=== PATIENT | female | born 1990 | race Caucasian/White ===

== ENCOUNTER 2016-11-19 15:28 | Outpatient (CLI) | payer MEDICAID ==
[~2016-11-19] VITALS: Ht 167.6 cm; Wt 67.0 kg
[2016-11-19 15:42] VITALS: Ht 167.6 cm; Wt 67.0 kg
[2016-11-19 15:43] VITALS: BP 110/59; PULSE 85; RESP 18
--- NOTE | 2016-11-19 16:34 | RADRPT ---
PROCEDURE: US OB biophysical profile. CLINICAL INDICATION: decreased movements, labor TECHNIQUE: Multiple sonographic images of the pelvis were obtained. The images were reviewed on a PACS workstation. COMPARISON: No prior studies are available for comparison. FINDINGS: There is a single viable intrauterine gestation. Cardiac activity is present with 146 beats per min [place]. There is a vertex presentation. The placenta is anterior. There is no evidence of placental abruption. There is a normal amount of amniotic fluid with an SHERRIE = 11.8 cm. Biophysical profile: movement 2/2 tone 2/2. breathing 2/2 SHERRIE 2/2 Total 03/04 RPTAT: AA . IMPRESSION: Normal biophysical profile. . .Benedicto Borrego MD, Date Time Electronically viewed and signed by .Benedicto Borrego MD, MD on 11/19/2016 16:34 .S/
--- NOTE | 2016-11-19 17:26 | CONS ---
Date/Time of Note Date/Time of Note DATE: 11/19/16 TIME: 17:21 Consultation Date/Type/Reason Admit Date/Time November 18, 2016 OB triage consult Reason for Consultation This patient is a 26 years old 1 para 0 with estimated date of confinement of December 26, 2016 which makes her 34 weeks and 5 days today. She came from the clinic complaining of low movement and low heart beats On examination she is a well-developed well-nourished near term lady. No complaint of contractions On exam her vital signs appear to be normal blood pressure 110/59 pulse rate 85 respiration 18 temperature 98.6 Constitutional: improved, no complaints, No chills, No diaphoresis, No disoriented, No febrile, No other, No poor po, No requiring IVF, No requiring O2 ENT: No bleeding, No congestion, No discharge, No dysphagia, No no complaints, No other, No pain, No sore throat Respiratory: No cough, No no complaints, No other, No pain, No pleuritic pain, No shortness of breath, No sputum, No wheezing Cardiovascular: No chest pain, No edema, No lightheadedness, No no complaints, No orthopenea, No other, No palpitations, No paroxysmal nocturnal dyspnea Gastrointestinal: No blood, No constipation, No decreased appetite, No diarrhea , No flatus, No nausea, No no complaints, No other, No pain, No passing stool, No vomiting Genitourinary: other (Pelvic was not done however she did not have any contraction did not have any complaint of discharge or vaginal bleeding), No bleeding, No discharge, No dysuria, No flank pain, No hematuria, No no complaints Musculoskeletal: No back pain, No bone/joint pain, No neck pain, No no complaints, No other, No restricted range of motion, No swelling Skin: No bruising, No erythema, No laceration, No no complaints, No other, No pruritis, No rash, No skin lesions Psychological: No anxiety, No confusion, No depression, No nl mood/affect, No no complaints, No other, No suicidal Additional Comments Ultrasound study was ordered. The report was a single viable intrauterine gestation with cardiac activity of 146 bpm in vertex presentation. Placenta was anterior no evidence of abruption normal amount of amniotic fluid her SHERRIE was reported 11.8 cm. As I mentioned biophysical profile was 8/8 With these finding patient was reassured and was discharged home to be seen in the clinic Exam/Review of Systems Vital Signs Vitals Vital Signs Date Time Temp Pulse Resp B/P Pulse Ox O2 Delivery O2 Flow Rate FiO2 11/19/16 15:43 98.6 85 18 110/59 Room Air PATRICIA JOHNSTON MD Nov 19, 2016 17:26
--- NOTE | 2016-11-19 17:33 | TRIAGE ---
OB Triage Datetime Report Generated by CPN: 11/19/2016 17:33 Datetime: 11/19/2016 17:29 Patient Complaints: None Time Provider Notified: 11/19/2016 16:00 Provider Notified: FOROOHAR Datetime: 11/19/2016 17:28 Stage of : OB Triage Datetime: 11/19/2016 17:00 Stage of : OB Triage Labor Evaluation Frequency: NONE Monitor Mode: External Resting Tone [place]: Relaxed Heart Rate FHR Baseline Rate: 140 FHR Baseline Changes: No Baseline Change Variability: Moderate 6-25 bpm Accelerations: 15X15 Decelerations: None Category: Category I Pain Assessment Pain Scale: 0 Pain Presence: None/Denies Pain Goal: 3 Datetime: 11/19/2016 16:08 Assessment Type: Triage Maternal Assessment Level of Consciousness: Fully Conscious DTR's/Clonus: DTRs 2+; No Clonus Headache: Denies Blurred Vision: No Respiratory Effort: Unlabored; Regular Rhythm; Equal Expansion Breath Sounds, Left: Clear and Equal Breath Sounds, Right: Clear and Equal Nausea/Vomiting: Denies RUQ Epigastric Pain: Denies Lower Extremities Edema: None Degree: None Upper Extremities Edema: None Degree: None Facial Edema: None Fall Risk Assessment History of Falling: (0) No Secondary Diagnosis: (0) No Ambulatory Aid: (0) Bedrest/Nurse Assist IV Therapy: (0) No Gait: (0) Normal/Bedrest/Immobile Mental Status: (0) Oriented to Own Ability Fall Score: 0 Fall Risk Score Definition: No Risk: No action required Datetime: 11/19/2016 16:00 Stage of : Antepartum Labor Evaluation Frequency: NONE Monitor Mode: External Resting Tone [place]: Relaxed Heart Rate FHR Baseline Rate: 140 FHR Baseline Changes: No Baseline Change Variability: Moderate 6-25 bpm Accelerations: 15X15 Decelerations: None Category: Category I Pain Assessment Pain Scale: 0 Pain Presence: None/Denies Pain Goal: 3 Datetime: 11/19/2016 15:56 Time of Arrival: 11/19/2016 15:35 EGA: 34.5 Arrived By: Wheelchair Arrived From: Emergency Dept Chief Complaint: DECREASE HEART RATE Movement: Present Contractions: Denies/Absent Rupture of Membranes: Denies Vaginal Bleeding: None Vaginal Discharge: Denies Recent Sexual Intercouse: Denies Abdominal Trauma: Not Applicable Patient Complaints: None Time Provider Notified: 11/19/2016 16:00 Provider Notified: FOROOHAR Initial Plan: NST,BPP. Datetime: 11/19/2016 15:54 Time of Arrival: 11/19/2016 15:35 Arrived By: Wheelchair Arrived From: Emergency Dept Chief Complaint: PT STATED HER OFFICE CHECKED THE HEART AND IT LOW. Movement: Present Contractions: Denies/Absent Rupture of Membranes: Denies Vaginal Bleeding: None Vaginal Discharge: Denies Recent Sexual Intercouse: Denies Abdominal Trauma: Not Applicable Patient Complaints: None Initial Plan: NST Datetime: 11/19/2016 15:36 Stage of : OB Triage
== END 2016-11-19 17:30 | disposition home or self-care (01) ==
LOC: OBT 15:28 → L-D 15:28 → OBT 17:30
PROVIDERS: ATTEND Obstetrics & Gynecology
DX: O36.8130 Decreased fetal movements, third trimester, not applicable or unspecified (principal); O76 Abnormality in fetal heart rate and rhythm complicating labor and delivery; Z3A.34 34 weeks gestation of pregnancy
CPT/HCPCS: 76818; Z7500; G0463